=== PATIENT | male | born 1975 | race Caucasian/White ===

== ENCOUNTER 2017-02-08 10:06 | Outpatient (CLI) | payer MEDICAID | END 2017-02-08 10:07 | disposition home or self-care (01) | LOC: SC 10:06 | PROVIDERS: ATTEND Internal Medicine Pulmonary Disease | DX: G47.33 Obstructive sleep apnea (adult) (pediatric) (principal); F51.04 Psychophysiologic insomnia | CPT/HCPCS: 99203; 99212 ==

== ENCOUNTER 2017-03-25 22:29 | Outpatient (CLI) | payer MEDICAID | END 2017-03-25 22:30 | disposition home or self-care (01) | LOC: SC 22:29 | PROVIDERS: ATTEND Internal Medicine Pulmonary Disease | DX: G47.33 Obstructive sleep apnea (adult) (pediatric) (principal) | CPT/HCPCS: 95810 ==

== ENCOUNTER 2017-04-20 08:54 | Outpatient (CLI) | payer MEDICAID | END 2017-04-20 08:55 | disposition home or self-care (01) | LOC: SC 08:54 | PROVIDERS: ATTEND Nurse Practitioner Family | DX: G47.30 Sleep apnea, unspecified (principal); G47.00 Insomnia, unspecified; R53.83 Other fatigue | CPT/HCPCS: 99212; 99214 ==

== ENCOUNTER 2020-10-22 08:27 | Outpatient (CLI) | payer MEDICAID ==
--- NOTE | 2020-10-22 10:02 | XRAY Report ---
PROCEDURE: Thoracic Spine 3 View INDICATIONS: THORACIC SPRAIN AND STRAIN TECHNIQUE: 3 views of the thoracic spine were acquired. COMPARISON: None. FINDINGS: Bones: No fractures acute or dislocations. 3 contiguous mild chronic midthoracic compressions result in mild increased thoracic kyphosis. No suspicious bony lesions. 12 pairs of ribs are noted, and a ppear intact where visualized. Soft tissues: No paravertebral stripe thickening. IMPRESSION: 1. There are 3 contiguous chronic mild mid thoracic compressions. 2. No evidence acute bony abnormality of the lumbar spine. If clinical suspicion and/or symptoms persist, further assessment with repeat plain films or advanced imaging (e.g., CT, MRI, or bone scan) may be helpful for further assessment. Additionally, consider DEXA bone densitometry to evaluate whether there is underlying osteoporosis. Reviewed by: Sotero Guerra MD on 10/22/2020 10:01 AM PDT Approved by: Sotero Guerra MD on 10/22/2020 10:01 AM PDT Station ID: [id number]
--- NOTE | 2020-10-22 10:26 | XRAY Report ---
PROCEDURE: Cervical Spine 2 View INDICATIONS: CHRONIC NECK PX TECHNIQUE: 3 view(s) of the cervical spine were acquired. COMPARISON: None. FINDINGS: No acute fracture identified. Scattered multilevel endplate spurring and diffuse facet arthropathy. N o definite disc space narrowing. Mild levocurvature. IMPRESSION: Mild levocurvature Minimal degenerative changes as above. If the patient's pain or other symptoms persist, consider furt her evaluation with MRI. Reviewed by: Josh Jama MD on 10/22/2020 10:25 AM PDT Approved by: Johs Jama MD on 10/22/2020 10:25 AM PDT Station ID: [id number]
== END 2020-10-22 08:28 | disposition home or self-care (01) ==
LOC: DI.N 08:27
PROVIDERS: ATTEND Physician Assistant Medical
DX: M47.812 Spondylosis without myelopathy or radiculopathy, cervical region (principal); M54.2 Cervicalgia

== ENCOUNTER 2020-12-02 09:59 | Outpatient (CLI) | payer MEDICAID ==
--- NOTE | 2020-12-02 17:20 | DEXA Report ---
PROCEDURE: Dexa Spine and/or Hip INDICATIONS: WEDGE COMPRESSION FRACTURE, THORACIC VERTEBRA TECHNIQUE: Dual energy x-ray absorptiometry (DXA) was performed on a [employer] System. Regions measur ed are the AP Spine, femoral neck, and if needed forearm. COMPARISON: None. FINDINGS: Lumbar Spine: Bone Mineral Density 0.982 g/cm/cm,T score -2.0, osteopenia Left Hip: Bone Mineral Density 0.887 g/cm/cm,T score -1.5, osteopenia Left Femoral Neck: Bone Mineral Density 0.891 g/cm/cm, T score -1.4, osteopenia (T score greater or equal to -1.0: NORMAL) (T score from -1.1 to -2.4: OSTEOPENIA) (T score less than or equal to -2.5 to: OSTEOPOROSIS) Impression: Osteopenia. Patients with diagnosis of osteoporosis or osteopenia should have regular bone mineral density assess ment. For those eligible for Medicare, routine testing is allowed once every 2 years. Testing frequ ency can be increased for patients who have rapidly progressing disease or for those who are receivin g medical therapy to restore bone mass. Reviewed by: Sonia Mathis MD, PhD on 12/02/2020 5:18 PM PDT Approved by: Sonia Mathis MD, PhD on 12/02/2020 5:18 PM PDT Station ID: [id number]
== END 2020-12-02 10:00 | disposition home or self-care (01) ==
LOC: DI 09:59
PROVIDERS: ATTEND Physician Assistant Medical
DX: S22.000A Wedge compression fracture of unspecified thoracic vertebra, initial encounter for closed fracture (principal); M85.89 Other specified disorders of bone density and structure, multiple sites

== ENCOUNTER 2022-04-05 09:03 | Outpatient (CLI) | payer MEDICAID ==
[2022-04-05 22:41] VITALS: BP 98/60
--- NOTE | 2022-04-05 22:41 | SLEEP CARE CONSULTATION ---
Information from patient questionnaire entered by Alisa Young. I have reviewed and concur with the information entered by Alisa Young. This document represents the service I personally performed and the decisions made by me, Jaiden Doshi MD, [facility]. History of Present Illness Service Date and Time: 04/05/2022 0903 Reason for Visit: New patient Chief Complaint: reports: Insomnia, Unrefreshed sleep, Observed pauses in breathing, Fatigue, Frequent awakenings at night Date of Onset: INSOMNIA SINCE YOUTH, OTHERS OVER LAST 20 YRS Usual bedtime: 930-1030PM Time it takes to fall asleep: WITH PILLS 5-60MIN Snores at night: No (UNKNOWN) Observed to quit breathing while asleep: Yes Sleeps alone due to snoring: No Number of times waking at night: 2-10+ Reasons for waking at night: reports: Gasping for air, Pain, Bathroom, Other (NOISE AND UNKNOWN ) Toss, Turn, or Twitch while sleeping: Yes Recalls having dreams: Yes Usually gets out of bed at: 530-7AM Feels refreshed in the morning: No Morning headache: Yes (RESOLVES WITH IN A FEW HRS, OTHERS TIMES LASTS ALL DAY) Sleepy or fatigued during the day: Yes Ever fallen asleep while driving: No Takes day naps: No Dreams during day naps: No Prior sleep studies: Yes ([facility] 2017) Additional HPI information: I had the pleasure of seeing Mr. Arredondo today regarding the possibility of him having a sleep disorder. As you know, he is a 46-year-old gentleman who complains of insomnia almost all throughout his adult life. He had a sleep study here 5 years ago that was negative (AHI was 0.8). Prior to that, he had a home sleep apnea test (HSAT) at in [place] that showed mild obstructive sleep apnea-hypopnea. He was prescribed a CPAP which he could not tolerate. The patient tells me that he normally goes to bed around 9:30 10:30 pm, and it takes him approximately 5 - 60 minutes to fall asleep. He has been told that he snores at night. He has been observed to stop breathing in his sleep. His sleeps by himself in the living room. He can recall waking up on the average of 2 - 10 times during the night. Most of the time he wakes up because of shortness of breath, having to use the bathroom, and pain. There is a lot of tossing and turning in his sleep. No somniloquy (sleep talking) or somnambulism (sleep walking). Generally, he can recall having dreams. In the morning he usually gets up out of the bed around 5 - 7 a.m. not feeling refreshed nor rested. He usually does have a morning headache that can last all day. During the day he complains of feeling sleepy and fatigued. His score on [place] Sleepiness Scale is 2 out of 24. He never has fallen asleep while driving nor has had any accident due to sleepiness. He cannot nap during the day even if he tries. He reports having impaired concentration during the day. - Parasomnia Symptoms Ever been unable to move upon waking from sleep: No Walks in sleep: No Talks in sleep: No Ever acted out dreams in sleep: Yes Ever felt weak in the knees when startled or emotional: Yes Bothered by creepy, crawly, restless sensations in legs: No Problems with memory or concentration: Yes Subjective Initial [place] Sleepiness Scale score: 2 (04/05/2022) Past Medical History Past Medical History: reports: Arthritis, Depression Social History The patient's occupation is a TEACHER. Patient is and lives in [place]. Have you smoked in the past 12 months: No Alcohol use: No Caffeine use: Yes Caffeine amount and frequency: 1 CUP BLACK TEA DAILY Family History Family history of sleep disordered breathing: Yes Family Hx Sleep Apnea: Father: Sleep apnea - Treated, Other: Snoring (7YR OLD SON) Allergies and Home Medications Known drug allergies: No Drug allergies reviewed: Yes Home medication list reviewed: Yes Review of Systems Cardiovascular: denies: high blood pressure, palpitations, chest pain, irregular heart rate or pulse, leg or foot swelling, have to sleep sitting up, other Respiratory: denies: shortness of breath, wheeze, sputum production, chronic cough, other Gastrointestinal: reports: nausea, abdominal pain Urinary: denies: incontinence, frequency, urgency, impotence, other Neurological: reports: headaches Psychiatric: reports: depression Ear/Nose/Throat: reports: hoarseness Endocrine: denies: thyroid disease, history of goiter, sluggishness, too hot or cold, excessive thirst, increased appetite, increased urination, unexplained weakness, other Musculoskeletal: reports: joint pain, neck pain, back pain, muscle pain or cramping Immunologic: denies: sneezing, rash, itching, allergies to food or environment, other Physical Exam Vital signs obtained and entered by: ALISA Hector MA Blood Pressure: 98/60 (LEFT ARM) Cuff size: regular Heart Rate: 67 O2 Saturation: 99 Height: 6 ft 1 in Weight: 155 lb 3.2 oz Body Mass Index: 20.5 BMI Classification: Normal Neck circumference: 14.25 HEENT: No craniofacial malformation Nostrils: patent to airflow Turbinates: normal Septum: midline Mouth and throat: normal Soft palate: normal Hard palate: normal Uvula: normal Uvula visualization: 100% Mallampati Class I Tongue: normal in size Tonsils: small Chin and jaw: normal size and position Neck: normal w/o lymphadenopathy or thyromegaly Heart: regular rate and rhythm Lungs: clear bilaterally Extremities: no edema or clubbing Neurologic: intact Impression and Plan IMPRESSION: 1. Obstructive Sleep Apnea-Hypopnea Syndrome, mild, diagnosed with a home sleep apnea test (HSAT) at 7 years ago but had a normal in- laboratory polysomnography here. He continues to have insomnia. He has had insomnia all his adult life. Cognitive behavior therapy (CBTi) was performed. First, I reassured him that he has been getting adequate sleep all along because he is not sleepy during the day ([place] Sleepiness Scale score is of only 2). Therefore, his goal should not be to increase sleep but to reduce the time lying awake in bed. Based on his report of getting 6 7 hours of sleep a night throughout his life, I recommend spending no more than 6 hours in bed at night (presently, he is spending 8 9 hours). This can be achieved by not going to bed until 12:30 am and maintaining his wakeup time at 6:30 am. Once he can sleep through, he may add another 30 minutes after a few weeks. Another in- laboratory polysomnography will be performed see if he has significant sleep- disordered breathing (to date, he has one positive and one negative studies). Plan: 1. Schedule an in-laboratory polysomnography and return in 1 to 2 weeks after the study to discuss results. 2. Maintain a regular wake up time and spend no more than 6 hours in bed at night. Avoid naps. Follow up with Sleep Care in: 1-2 months Visit Type: In Office Time Spent with Patient (minutes): 15 Provider Statement: I spent 100% of the Face to Face Visit with the patient with greater than 50% spent counseling the patient and coordination of care.
== END 2022-04-05 09:04 | disposition home or self-care (01) ==
LOC: SC 09:03
PROVIDERS: ATTEND Internal Medicine Pulmonary Disease
DX: G47.33 Obstructive sleep apnea (adult) (pediatric) (principal); G47.00 Insomnia, unspecified
CPT/HCPCS: 99202; 99212

== ENCOUNTER 2022-05-17 20:40 | Outpatient (CLI) | payer MEDICAID | END 2022-05-17 20:41 | disposition home or self-care (01) | LOC: SC 20:40 | PROVIDERS: ATTEND Internal Medicine Pulmonary Disease | DX: G47.33 Obstructive sleep apnea (adult) (pediatric) (principal) | CPT/HCPCS: 95810 ==

== ENCOUNTER 2022-06-23 08:43 | Outpatient (CLI) | payer MEDICAID ==
[2022-06-23 09:04] VITALS: BP 108/62
--- NOTE | 2022-06-23 09:04 | Sleep Patient Instructions ---
Sleep Center Visit Summary - Patient Visit Information Reason for Visit: Sleep Study follow up - Patient Instructions Instructions Attached: Snoring Tips Prevent Additional Instructions: Your sleep study today was negative for significant sleep disordered breathing. However, you did have elevated respiratory episodes when sleeping on your back. You should avoid sleeping on your back to control these respiratory episodes and improve quality of sleep overall. You were found to have episodes of snoring. There are different ways to control snoring including weight loss, oral devices made by a dentist or surgical options through ENT specialist. You should not use oral devices that do not fit properly because they can affect your bite. You should also check insurance coverage of oral devices for snoring because they may not be cover well. You may obtain a referral to an ENT specialist through your primary provider. Follow-up as needed. - Clinic Information Contact: [facility] [address] [place] [address] [email or web address] T: [phone]
--- NOTE | 2022-06-23 09:04 | SLEEP CARE CONSULTATION ---
Information from patient questionnaire entered by Mechelle Young. I have reviewed and concur with the information entered by Mechelle Young. This document represents the service I personally performed and the decisions made by , Aparna Ureña ARNP. History of Present Illness Service Date and Time: 06/23/2022 0843 Initial [place] Sleepiness Scale score: 2 (04/05/2022) Current [place] Sleepiness Scale score: 2 (06/23/22) Additional HPI information: CYNDEE DELUCA returns for follow up and results of the recently performed polysomnography. The patient was informed of the following findings: No significant sleep disordered breathing with an average AHI of 3.8 and yany oxygen saturation of 87%. Elevated supine AHI at 14.9. I explained the pathophysiology behind obstructive sleep apnea. Patient does not have sleep apnea and was advised how weight gain could increase the risk of developing sleep apnea in the future. . Patient does not have significant sleep disordered breathing but has elevated AHI in supine position so advised positional therapy. Methods to achieve positional management therapy were discussed; such as, positioning with pillows, wearing a T-shirt with tennis balls sewn into the back or commercially available products. Patient has light to moderate snoring. Snoring can be reduced by weight loss. Weight loss is best achieved with diet consult. Patient instructed to contact PCP for referral. Snoring can also be treated with an oral appliance from a dentist. Advised to check insurance coverage. In addition, an ENT evaluation can be do to see if other treatment is indicated. Patient does not drink alcohol. Patient was cautioned about risks of drowsy driving until sleepiness symptoms resolve. Patient denies drowsy driving. Sleep Study - Results Type of Sleep Study: Polysomnography (COMPLETED 05/17/22) Prior sleep studies: Yes ([facility] 2017) Polysomnography/Home Sleep Study results: IMPRESSION: The quality of the study is good. The patient had normal sleep efficiency. The sleep architecture was relatively normal as well considering the first-night effect. Respiratory monitoring showed no significant sleep disordered breathing (AHI = 3.8) or hypoxia (yany oxygen saturation of 87% and only 0.1% to the total sleep time was spent with oxygen saturation below 90%). The few respiratory events occurred almost exclusively during supine sleep (supine AHI = 14.9; non-supine = 2.24). Snore was light to moderate in intensity. There was no significant periodic leg movement of sleep. Cardiac rhythm was normal sinus rhythm without significant arrhythmia. No abnormal behavior (parasomnia) observed during the night. Allergies and Home Medications Known drug allergies: No Drug allergies reviewed: Yes Home medication list reviewed: Yes (no changes) Allergy and home medication list: Allergies No Known Drug Allergies Allergy (Verified 06/22/22 13:16) Review of Systems Review of systems same as previous: Yes (no changes) Physical Exam Vital signs obtained and entered by: MECHELLE Hector MA Blood Pressure: 108/62 (LEFT ARM) Cuff size: regular Heart Rate: 55 O2 Saturation: 99 Height: 6 ft 1 in Weight: 156 lb 12.8 oz Body Mass Index: 20.7 BMI Classification: Normal Impression and Plan Snoring but no significant sleep disordered breathing. However, he did have an elevated supine AHI and was advised to avoid sleeping supine. Patient advised that often weight loss will reduce snoring as well as apnea risk. An oral appliance can also be used for snoring. This would require a dental consultation. Patient cautioned not to use other online appliances as can cause bite issues. A list of accredited dentists in [facility] and one local dentist who makes oral appliances is available in office as needed. Patient is advised to check if insurance will cover. An ENT consult can also be helpful to determine if any other treatment is an option. * Avoid sleeping supine * Attempt to lose weight * Avoid alcohol consumption near bedtime * The patient is cautioned about driving until sleepiness is completely resolved. * Return as needed for follow up. Counseling Topics: Sleeping position Visit Type: In Office Time Spent with Patient (minutes): 20 Provider Statement: I spent 100% of the Face to Face Visit with the patient with greater than 50% spent counseling the patient and coordination of care.
== END 2022-06-23 08:44 | disposition home or self-care (01) ==
LOC: SC 08:43
PROVIDERS: ATTEND Nurse Practitioner Family
DX: R06.83 Snoring (principal)
CPT/HCPCS: 99212; 99213

== ENCOUNTER 2022-09-29 08:05 | Outpatient (CLI) | payer MEDICAID ==
[2022-09-29 11:43] LABS: BASOPHILS # (AUTO) 0.1 10^3/uL (0.0-0.1); BASOPHILS % (AUTO) 1.2 %; EOSINOPHILS # (AUTO) 0.1 10^3/uL (0.0-0.7); EOSINOPHILS % (AUTO) 1.4 %; HCT - HEMATOCRIT 47.8 % (42.0-52.0); HGB - HEMOGLOBIN 15.2 g/dL (14.0-18.0); LYMPHOCYTES # (AUTO) 1.6 10^3/uL (1.5-3.5); LYMPHOCYTES % (AUTO) 36.7 %; MEAN CORPUSCULAR HGB CONC 31.8 g/dL (32.0-36.0); MEAN CORPUSCULAR VOLUME 84.9 fL (80.0-94.0); MEAN PLATELET VOLUME 10.8 fL (7.4-11.4); MONOCYTES # (AUTO) 0.3 10^3/uL (0.0-1.0); MONOCYTES % (AUTO) 6.3 %; NEUTROPHILS # (AUTO) 2.3 10^3/uL (1.5-6.6); NEUTROPHILS % (AUTO) 54.2 %; PLT - PLATELET COUNT 225 10^3/uL (130-450); RED BLOOD COUNT 5.63 10^6/uL (4.70-6.10); RED CELL DISTRIBUTION WIDTH 12.1 % (12.0-15.0); WHITE BLOOD COUNT 4.3 x10^3/uL (4.8-10.8)
[2022-09-29 12:54] LABS: ALBUMIN 4.6 g/dL (3.2-5.5); ALBUMIN/GLOBULIN RATIO 1.7 (1.0-2.2); ALKALINE PHOSPHATASE 48 IU/L (42-121); ALT ALANINE AMINOTRANSFERASE 11 IU/L (10-60); AST ASPARTATE AMINOTRANSFERASE 16 IU/L (10-42); BILIRUBIN,TOTAL 0.6 mg/dL (0.2-1.0); BUN - BLOOD UREA NITROGEN 13 mg/dL (6-20); CALCIUM 9.7 mg/dL (8.5-10.3); CARBON DIOXIDE - CO2 29 mmol/L (21-32); CHLORIDE 105 mmol/L (101-111); CHOL/HDL RATIO 3.5 (<5.0); CHOLESTEROL 220 mg/dL; GFR - MDRD 80 (>89); GLUCOSE 89 mg/dL (74-104); HDL CHOLESTEROL 62 mg/dL; LDL CHOLESTEROL,CALCULATED 139 mg/dL; LDL/HDL RATIO 2.2 (<3.6); POTASSIUM 3.9 mmol/L (3.5-4.5); SODIUM 138 mmol/L (135-145); TOTAL PROTEIN 7.3 g/dL (6.4-8.9); TRIGLYCERIDES 93 mg/dL (48-352); VLDL CHOLESTEROL 19 mg/dL
[2022-09-29 13:00] LABS: THYROID STIMULATING HORMONE 1.13 uIU/mL (0.34-5.60)
== END 2022-09-29 08:06 | disposition home or self-care (01) ==
LOC: LAB.N 08:05
PROVIDERS: ATTEND Physician Assistant Medical
DX: Z00.00 Encounter for general adult medical examination without abnormal findings (principal); Z12.5 Encounter for screening for malignant neoplasm of prostate
CPT/HCPCS: 36415; 80053; 80061; 83721; 84153; 84443; 85025

== ENCOUNTER 2023-11-04 08:26 | Outpatient (CLI) | payer MEDICAID ==
--- NOTE | 2023-11-04 18:38 | XRAY Report ---
PROCEDURE: Tib/Fib LT INDICATIONS: LEG PAIN, LEFT TECHNIQUE: 2 views of the tibia and fibula were acquired. COMPARISON: None. FINDINGS: Bones: No fractures or dislocations. No suspicious bony lesions. Soft tissues: No suspicious soft tissue calcifications or masses. IMPRESSION: No visualized acute fracture or dislocation. However, occult injury cannot be excluded. Recommend magali rt interval imaging follow-up in 7-10 days as clinically indicated for additional evaluation. Reviewed by: Wilda Kamara MD on 11/04/2023 6:37 PM PDT Approved by: Wilda Kamara MD on 11/04/2023 6:37 PM PDT Station ID: [id number]
== END 2023-11-04 08:27 | disposition home or self-care (01) ==
LOC: LAB.N 08:26 → DI.N 08:27
PROVIDERS: ATTEND Physician Assistant Medical
DX: M79.605 Pain in left leg (principal)